=== PATIENT | female | born 1975 | race Caucasian/White ===

== ENCOUNTER 2024-03-18 13:15 | Emergency (ER) | payer SELFPAY ==
[2024-03-18 13:17] VITALS: BP 120/70; PULSE 82; RESP 17; TEMP 36.1; O2SAT 99; BMI 34.0
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
[2024-03-18] MEDS: Tetracaine 0.5% Ophthalmic Bottle 1 DRP OPHTHALMIC (14:32)
[2024-03-18] MEDS: Fluorescein 1 MG STRIP 1 STRIP OPHTHALMIC (14:32)
[2024-03-18] MEDS: Ciprofloxacin 0.3% 2.5ml Bottle 1 DRP RIGHT EYE (15:28)
== END 2024-03-18 15:33 | disposition home or self-care (01) ==
LOC: ED 15:24
PROVIDERS: Emergency Provider Emergency Medicine; Visit Provider Emergency Medicine
DX: H10.9 Unspecified conjunctivitis (principal); F17.210 Nicotine dependence, cigarettes, uncomplicated
CPT/HCPCS: 99283